=== PATIENT | female | born 1980 | race Hispanic/Latino ===

== ENCOUNTER → 2018-03-21 | Outpatient (REF) | payer SELFPAY ==
[~2018-03-21] MED LIST: BENTYL20 MG OR; IBUPROFEN600 MG PO; PRENATAL1 TA1 PO; ZOFRAN ODT4 MG OR
[2018-03-21 09:55] LABS: PROTHROMBIN TIME 10.5 SECONDS (9.0-12.5)
== END | disposition home or self-care (01) | DRG 645 ==
LOC: ULTRASND 09:13
PROVIDERS: Family Medicine; ATTEND Nurse Practitioner Family
PROC: 0G9H3ZX Drainage of Right Thyroid Gland Lobe, Percutaneous Approach, Diagnostic (ICD-10-PCS; principal; 2018-03-21)
DX: E04.1 Nontoxic single thyroid nodule (principal); Z01.818 Encounter for other preprocedural examination

== ENCOUNTER 2019-03-12 14:23 | Emergency (ER) | payer SELFPAY ==
[~2019-03-12] VITALS: Ht 142.2 cm; Wt 70.0 kg
[2019-03-12 15:25] LABS: URINE BILIRUBIN - DIPSTICK NEGATIVE (NEGATIVE); URINE BLOOD DIPSTICK NEGATIVE (NEGATIVE); URINE CLARITY CLEAR; URINE COLOR YELLOW; URINE GLUCOSE - DIPSTICK NEGATIVE (NEGATIVE); URINE KETONE NEGATIVE (NEGATIVE); URINE LEUK ESTERASE NEGATIVE (Negative); URINE NITRITE - DIPSTICK NEGATIVE (Negative); URINE PH 5.5 (4.5-8.0); URINE PROTEIN - DIPSTICK NEGATIVE (NEG-TRACE); URINE SPECIFIC GRAVITY <=1.005; URINE UROBILINOGEN - DIPSTICK 0.2 E.U./dL (0.2)
[2019-03-12] MEDS ORDERED: LEVOTHYROXIN125 MCG PO (15:38)
[2019-03-12 15:40] LABS: HEMATOCRIT 40.6 % (37.0-47.0); HEMOGLOBIN 13.3 g/dl (12.0-16.0); IMMATURE GRANULOCYTES 0.5 % (0.0-5.0); MEAN CORPUSCULAR HGB 29.1 pG CALC (26.0-32.0); MEAN CORPUSCULAR HGB CONC 32.8 g/L CALC (32.0-36.0); NEUT# 5.76 thou/uL (2.00-7.15); RED BLOOD COUNT 4.57 mill/uL (4.20-5.60); RED CELL DISTRI WIDTH 13.1 % (11.5-15.5)
[2019-03-12 15:43] LABS: BILIRUBIN, TOTAL 0.5 mg/dL (0.0-1.4); BUN 10 mg/dL (7-17); BUN/CREATININE RATIO 12 (12-20 (CALC)); CHLORIDE 106 mmol/l (95-108); CREATININE 0.8 mg/dL (0.5-1.0); GFR > 60 ML/MIN (>=60 (CALC)); GFR FOR AFR.AMER. > 60 ML/MIN (>=60 (CALC)); MEAN CELL VOLUME 88.8 fL CALC (80.0-100.0); SGOT/AST 29 u/l (14-36); TOTAL PROTEIN 8.3 g/dL (6.3-8.2)
[2019-03-12 15:46] LABS: ALBUMIN 4.8 g/dL (3.2-5.0); ALKALINE PHOSPHATASE 83 u/l (38-126); ANION GAP 13 (6-22 (CALC)); CARBON DIOXIDE 26 mmol/l (22-30); POTASSIUM 3.2 mmol/l (3.5-5.1); SODIUM 142 mmol/l (137-146)
[2019-03-12] MEDS ORDERED: KEFLEX500 M1 PO (17:40)
[2019-03-12 18:05] VITALS: BP 120/71
== END 2019-03-12 18:05 | disposition home or self-care (01) | DRG 156 ==
LOC: ED 14:23
DX: K11.20 Sialoadenitis, unspecified (principal)
CPT/HCPCS: Q9967

== ENCOUNTER 2019-12-03 21:36 | Emergency (ER) | payer SELFPAY ==
[~2019-12-03] VITALS: Ht 144.8 cm; Wt 63.6 kg
[~2019-12-03 21:36] MED LIST changes: +KEFLEX500 M1 PO; +LEVOTHYROXIN125 MCG PO
[2019-12-03 23:02] LABS: HEMATOCRIT 38.7 % (37.0-47.0); HEMOGLOBIN 12.9 g/dl (12.0-16.0); IMMATURE GRANULOCYTES 0.3 % (0.0-5.0); MEAN CELL VOLUME 88.6 fL CALC (80.0-100.0); MEAN CORPUSCULAR HGB 29.5 pG CALC (26.0-32.0); MEAN CORPUSCULAR HGB CONC 33.3 g/dL CAL (32.0-36.0); NEUT# 3.47 thou/uL (2.00-7.15); RED BLOOD COUNT 4.37 mill/uL (4.20-5.60); RED CELL DISTRI WIDTH 13.1 % (11.5-15.5)
[2019-12-03 23:10] LABS: ALBUMIN 4.3 g/dL (3.2-5.0); ALKALINE PHOSPHATASE 61 u/l (38-126); AMYLASE 111 u/l (30-110); ANION GAP 11 (6-22 (CALC)); BILIRUBIN, TOTAL 0.3 mg/dL (0.0-1.4); BUN 15 mg/dL (7-17); BUN/CREATININE RATIO 27 (12-20 (CALC)); CARBON DIOXIDE 26 mmol/l (22-30); CHLORIDE 104 mmol/l (95-108); CREATININE 0.6 mg/dL (0.5-1.0); GFR > 60 ML/MIN (>=60 (CALC)); GFR FOR AFR.AMER. > 60 ML/MIN (>=60 (CALC)); LIPASE 128 u/l (23-300); POTASSIUM 3.1 mmol/l (3.5-5.1); SGOT/AST 34 u/l (14-36); SODIUM 138 mmol/l (137-146)
[2019-12-03 23:13] LABS: ACT PARTIAL THROMBO TIME 26.1 SECONDS (20.0-32.5); D-DIMER 0.3 mg/L (0.19-0.60)
[2019-12-03 23:20] VITALS: BP 122/64
[2019-12-03 23:21] LABS: MYOGLOBIN 13 ng/mL (0 - 62)
[2019-12-03] MEDS ORDERED: TORADOL PO (23:58)
== END 2019-12-04 00:10 | disposition home or self-care (01) | DRG 313 ==
LOC: ED 21:36
PROVIDERS: Family Medicine
DX: R07.89 Other chest pain (principal)